=== PATIENT | male | born 1970 | race Two or more races ===

== ENCOUNTER 2025-03-26 07:19 | Emergency (ER) | payer SELFPAY ==
[2025-03-26 07:35] VITALS: BP 151/92; PULSE 97; RESP 18; TEMP 37.3; O2SAT 96; BMI 33.6
--- NOTE | 2025-03-26 07:46 | PD.EDSKIN ---
ED Skin Abcess FB-RME/HPI General Chief complaint: Skin/Abscess/Foreign Body Stated complaint: left eye left side of face rash, painful x5d Time Seen by Provider: 03/26/25 07:35 Arrival date/time: 03/26/25 07:19 This is a case of a 54-year-old male who came in in the emergency room due to painful itchy vesicular rash on the left side of forehead left eye and some of the left cheek for 2 weeks patient went to the clinic 2 days prior to arrival in the emergency room and they were given prednisone and hydrocortisone cream which makes the patient symptoms worse patient denies any other symptoms Limitations: no limitations Related Data Previous Rx's ?Medication ?Instructions ?Recorded cephalexin 500 mg tablet 1,000 mg (2 x 500 mg) PO Q12H 10 03/26/25 days #40 tabs erythromycin 5 mg/gram (0.5 %) eye 0.5 inch ophthalmic (eye) TID 7 03/26/25 ointment days #3.5 grams ibuprofen 800 mg tablet 800 mg PO Q8H PRN pain #20 tabs 03/26/25 valacyclovir 1 gram tablet 1,000 mg PO Q12H 14 days #28 tabs 03/26/25 Allergies Allergy/AdvReac Type Severity Reaction Status Date / Time hydrocortisone AdvReac Intermediate redness Verified 03/26/25 07:26 Review of Systems Review of Systems Systems Reviewed: All systems reviewed, normal except as documented Constitutional Constitutional: Reports system reviewed and no additional complaints, except as documented Eyes Eyes: Reports other (Left upper eyelid swelling and redness) ENT Ears, Nose, Mouth, and Throat: Reports system reviewed and no additional complaints, except as documented and Reports as per HPI Cardiovascular Cardiovascular: Reports system reviewed and no additional complaints, except as documented, Reports as per HPI and Denies dyspnea Respiratory Respiratory: Reports system reviewed and no additional complaints, except as documented and Denies dyspnea Gastrointestinal Gastrointestinal: Reports system reviewed and no additional complaints, except as documented and Reports as per HPI Musculoskeletal Musculoskeletal: Reports system reviewed and no additional complaints, except as documented and Reports as per HPI Integumentary/Breasts Skin/Breast: Reports other (Rash) Neurologic Neurologic: Reports system reviewed and no additional complaints, except as documented and Reports as per HPI Past Medical History Social History SMOKING STATUS: Never smoker ED Exam General Limitations: Present no limitations General appearance: Present alert and in no apparent distress Head Head exam: Present atraumatic, normocephalic and normal inspection Eye Eye exam: Present normal appearance, PERRL, EOMI and other (PERRL EOM intact normal conjunctiva no periorbital cellulitis noted left upper eyelid swelling tender red with mild discharge no foreign body no hyphema nop pappiledema) ENT ENT exam: Present normal exam, normal oropharynx and mucous membranes moist Neck Neck exam: Present normal inspection, full ROM and trachea midline; Absent tenderness, meningismus, lymphadenopathy or thyromegaly Chest Chest inspection: Present normal inspection and symmetric chest wall rise Respiratory Respiratory exam: Present normal lung sounds bilaterally; Absent respiratory distress, wheezes, stridor, accessory muscle use or prolonged expiratory phase Cardiovascular Cardiovascular exam: Present regular rate, normal rhythm and normal heart sounds; Absent bradycardia, tachycardia, irregular rhythm or systolic murmur Abdominal Exam Abdominal exam: Present soft and normal bowel sounds Extremities Exam Extremities exam: Present normal inspection and full ROM Back Exam Back exam: Present normal inspection and full ROM Neurological Exam Neurological exam: Present alert, oriented X3 and CN II-XII intact Psychiatric Psychiatric exam: Present normal affect and normal mood Skin Skin exam: Present warm, dry, intact, normal color and other (Noted a multiple vesicular rashes inflamed on the left forehead left scalp some of the cheek tender to touch no cellulitis no abscess no dc) Course Quality Measures none Vital Signs Vital signs: Vital Signs Temperature 99.1 F 03/26/25 07:35 Pulse Rate 97 03/26/25 07:35 Respiratory Rate 18 03/26/25 07:35 Blood Pressure 151/92 H 03/26/25 07:35 Pulse Oximetry (%) 96 03/26/25 07:35 Oxygen Delivery Method Room Air 03/26/25 07:35 Oxygen saturation 96% in room air normal Skin / Abscess / Foreign Body MDM Narrative MDM Narrative:: This is a case of a 54-year-old male who came in in the emergency room due to painful itchy vesicular rash on the left side of forehead left eye and some of the left cheek for 2 weeks patient went to the clinic 2 days prior to arrival in the emergency room and they were given prednisone and hydrocortisone cream which makes the patient symptoms worse patient denies any other symptoms physical examination patient is awake alert oriented not in distress nontoxic looking noted a multiple vesicular rashes inflamed on the left forehead left scalp some of the cheek tender to touch no cellulitis no abscess no dc noted a left eye blepharitis noted left upper eyelid redness swelling tender to touch discharge the rest of the eye exam is normal based on my physical examination and history patient symptoms suggestive of shingles and blepharitis patient was discharged with valacyclovir for shingles ibuprofen for pain cephalexin for possible infection of the rash and erythromycin ointment for blepharitis patient will follow-up with PCP in 2 days for reevaluation and for any worsening symptoms he needs to return to the emergency room immediately or call [phone] Patient was discharged with comfortable condition walking with stable gait. Patient verbalized no further complains explained diagnosis and answered patient question. Patient is comfortable with the proposed management plan including the need to follow up with his/her primary care physician and any specialist if applicable Discussed patient for any urgent condition or worsening sx, He/She needed to go to emergency room immediately or call 911. Patient acknowledge the responsibility to follow up as instructed and to monitor her/his symptoms. For any persistence of the symptoms for more than 3-5 days return precaution advised. Discussed the result of the test and was given printed discharge instruction Patient data External records reviewed:: [facility] previous records Clinical information provided by:: patient Social determinants that could affect healthcare access:: none Patient has the following chronic illnesses:: None How is presenting disease/condition affected by chronic disease/condition?: no chronic disease Evaluation data The following diagnostics were reviewed and interpreted by me:: other (specify) (none) Lab and/or radiology exams considered but not ordered:: None Interpretation Summary: None Medications / Prescriptions Medications or Prescriptions considered but not ordered:: Given Medication administrations:: Given Consultations Consultation(s) initiated? (list below): No Diagnosis Skin/Abscess Differential Diagnosis: herpes zoster, cellulitis, eczema, impetigo and contact dermatitis Most likely diagnosis given after review of the tests above:: Shingles Admission Indicated Admission indicated?: not indicated Admission Request Was there a request for admission?: No Admission Attestation Admission request attestation: Not indicated Disposition Plan Disposition Plan: Discharge Discharge Attestation Discharge Attestation: The patient and all family members were given an opportunity to ask questions and understood the discharge instructions. Discharge instructions specifically effects, indications for sooner follow up or return to the emergency department, and the expected course of current diagnosis. Patient condition: Stable Discharge Plan Plan Patient Disposition: HOME (Self Care) Patient condition on transfer: Stable Prescriptions/Referrals Prescriptions/Med Rec: New valacyclovir 1 gram tablet 1,000 mg PO Q12H 14 Days Qty: 28 0RF ibuprofen 800 mg tablet 800 mg PO Q8H PRN (Reason: pain) Qty: 20 0RF cephalexin 500 mg tablet 1,000 mg PO Q12H 10 Days Qty: 40 0RF erythromycin 5 mg/gram (0.5 %) ointment 0.5 inch ophthalmic (eye) TID 7 Days Qty: 3.5 0RF Rx Instructions: Apply it to the left upper eyelid Problem List Clinical Impression: Herpes zoster, Blepharitis Patient/Caregiver Discharge Instructions Education Materials: ED Blepharitis, ED Shingles (Herpes Zoster) Additional Instructions: Follow-up with your primary care physician in 2 days for reevaluation avoid exposure to sun worsening symptoms or any emergent concern call 911 or go to the nearest emergency room warm compress on the left eye is advised take your medication as directed increase fluid intake Print Language: Bruneian Stand Alone Forms: Stephanie Award Info., Patient Portal Info Letter PA/INTERVIEWING CLERK Supervising Physician PA/INTERVIEWING CLERK Supervising Physician: dr [email or web address]
== END 2025-03-26 08:28 | disposition home or self-care (01) ==
LOC: SERX 08:21
PROVIDERS: Emergency Provider Emergency Medicine; PCP Family Medicine
DX: B02.9 Zoster without complications (principal); H01.004 Unspecified blepharitis left upper eyelid
CPT/HCPCS: 99281